=== PATIENT | female | born 1960 | race Two or more races ===

== ENCOUNTER 2019-07-10 09:42 | Outpatient (CLI) | payer OTHER | END 2019-07-10 09:55 | disposition home or self-care (01) | LOC: SONOGRAMA 09:42 | DX: E04.1 Nontoxic single thyroid nodule (principal) ==

== ENCOUNTER 2023-06-07 08:49 | Outpatient (CLI) | payer OTHER | END 2023-06-07 08:54 | disposition home or self-care (01) | LOC: SONOGRAMA 08:49 | PROVIDERS: ATTEND Pathology Anatomic Pathology & Clinical Pathology | DX: D34 Benign neoplasm of thyroid gland (principal); E07.89 Other specified disorders of thyroid; E04.2 Nontoxic multinodular goiter ==